=== PATIENT | male | born 1945 | race Caucasian/White ===

== ENCOUNTER 2021-01-07 12:32 | Inpatient (IN) | payer MEDICARE ==
[~2021-01-07] VITALS: Ht 172.7 cm; Wt 50.0 kg
[2021-01-07 13:02] LABS: BASO # 0.1 x10^3/uL (0.0-0.2); BASO % 1 % (0-3); EOS # 0.1 x10^3/uL (0.0-0.7); EOS % 1 % (0-3); HEMATOCRIT 46.4 % (39.0-53.0); HEMOGLOBIN 15.4 g/dL (13.0-17.5); LYMPH # 1.4 x10^3/uL (1.0-4.8); LYMPH % 16 % (24-48); MEAN CORPUSCULAR HEMOGLOBIN 33 pg (25-35); MEAN CORPUSCULAR HGB CONC 33 g/dL (31-37); MEAN CORPUSCULAR VOLUME 99 fL (79-100); MONO # 0.5 x10^3/uL (0.0-1.1); MONO % 6 % (0-9); NEUT # 6.6 x10^3uL (1.8-7.7); NEUT % 76 % (31-73); PLATELET COUNT 394 x10^3/uL (140-400); RED BLOOD COUNT 4.67 x10^6/uL (4.30-5.70); RED CELL DISTRIBUTION WIDTH 15.5 % (11.5-14.5); WHITE BLOOD COUNT 8.7 x10^3/uL (4.0-11.0)
--- NOTE | 2021-01-07 13:05 | EKG ---
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
--- NOTE | 2021-01-07 13:14 | PHYS DOC ---
Past History Past Medical History: A-Fib, CHF, COPD Additional Past Medical Histor: Sensory issues, pneumothorax, histoplasmosis as a teen, untreated. Past Surgical History: No Surgical History Smoking: Cigarettes Alcohol Use: Sober Drug Use: None General Adult EDM: Chief Complaint: SHORTNESS OF BREATH HPI: HPI: 75-year-old male presents via EMS with report of fatigue, dyspnea with exertion and rapid heart rate that has been progressive for the past few days. EMS was called and noted patient down to 82% on room air. Patient with subsequent improvement of O2 sats up to 94% on 4 L nasal cannula. Patient reports he does not typically use supplemental oxygen. Patient does have a history of COPD as well as CHF. Reports he does continue to smoke. Patient also reports history of histoplasmosis as a child that was reportedly "untreated". Denies known exposure to COVID-19. Patient reports he has gotten the first Pfizer vaccination in November. Patient reports he is not received second vaccination. EMS reports reports [facility] [place] however they were diverted secondary to "acuity "of condition. Review of Systems: Review of Systems: Constitutional: Denies fever or chills; reports fatigue Eyes: Denies redness or eye pain HENT: Denies nasal congestion or sore throat Respiratory: Reports cough and shortness of breath Cardiovascular: Denies chest pain; reports palpitations GI: Denies abdominal pain, nausea, or vomiting : Denies dysuria or hematuria Musculoskeletal: Denies back pain or joint pain Integument: Denies rash or skin lesions Neurologic: Denies headache, focal weakness or sensory changes Complete systems were reviewed and found to be within normal limits, except as documented in this note. Allergies: Allergies: Allergies Coded Allergies Type Severity Reaction Last Updated Verified Penicillins Allergy Unknown 01/07/21 Yes bupropion Allergy Unknown 01/07/21 Yes cephalexin Allergy Unknown Anaphylaxis 01/07/21 Yes diltiazem Allergy Unknown Anaphylaxis 01/07/21 Yes Uncoded Allergies Type Severity Reaction Last Updated Verified TUNA Allergy Unknown 01/07/21 Physical Exam: PE: Constitutional: Well developed, well nourished, ill but non-toxic appearance HENT: Normocephalic, atraumatic Eyes: Conjunctiva normal, no discharge Neck: Normal range of motion, supple Lungs & Thorax: No respiratory distress, equal chest rise and fall, diminished at bases Cardiovascular: Tachycardic regular rhythm Abdomen: Soft, no tenderness Skin: Warm, dry, no erythema, no rash Extremities: No tenderness, ROM intact, no edema Neurologic: Alert and oriented X 3, no focal deficits noted Psychologic: Affect normal, judgment normal Current Patient Data: Labs: Laboratory Tests Test 01/07/21 12:42 White Blood Count 8.7 x10^3/uL (4.0-11.0) Red Blood Count 4.67 x10^6/uL (4.30-5.70) Hemoglobin 15.4 g/dL (13.0-17.5) Hematocrit 46.4 % (39.0-53.0) Mean Corpuscular Volume 99 fL (79-100) Mean Corpuscular Hemoglobin 33 pg (25-35) Mean Corpuscular Hemoglobin Concent 33 g/dL (31-37) Red Cell Distribution Width 15.5 % (11.5-14.5) H Platelet Count 394 x10^3/uL (140-400) Neutrophils (%) (Auto) 76 % (31-73) H Lymphocytes (%) (Auto) 16 % (24-48) L Monocytes (%) (Auto) 6 % (0-9) Eosinophils (%) (Auto) 1 % (0-3) Basophils (%) (Auto) 1 % (0-3) Neutrophils # (Auto) 6.6 x10^3uL (1.8-7.7) Lymphocytes # (Auto) 1.4 x10^3/uL (1.0-4.8) Monocytes # (Auto) 0.5 x10^3/uL (0.0-1.1) Eosinophils # (Auto) 0.1 x10^3/uL (0.0-0.7) Basophils # (Auto) 0.1 x10^3/uL (0.0-0.2) Vital Signs: Vital Signs Date Time Temp Pulse Resp B/P (MAP) Pulse Ox O2 Delivery O2 Flow Rate FiO2 01/07/21 12:35 97.4 106 22 114/83 (93) 82 0 EKG: EKG: @1250 AFIB with RVR at 111bpm, NO ST elevation, QRS 100ms, QT/ QTc 366/501ms Radiology/Procedures: Radiology/Procedures: PROCEDURE: PORTABLE CHEST 1V EXAM: Chest, single view. HISTORY: Dyspnea. COMPARISON: None. FINDINGS: A frontal view of the chest is obtained. There are small right and moderate left pleural effusions. There is diffuse interstitial infiltrate with suspected partial left lower lobe consolidation. There is cardiomegaly. There are calcified granula. There is emphysema with biapical blebs and bullae and pleural parenchymal scarring. IMPRESSION: 1. Small right and moderate left pleural effusions. 2. Diffuse interstitial infiltrate with suspected partial left lower lobe consolidation. 3. Cardiomegaly. 4. Biapical predominant emphysema. Electronically signed by: Arina Hampton MD (01/07/2021 1:21 PM) [id number] Heart Score: C/O Chest Pain: N/A Course & Med Decision Making: Course & Med Decision Making Pertinent Labs and Imaging studies reviewed. (See chart for details) Patient reports with fatigue, dyspnea with exertion, and rapid heart rate. History of CHF, COPD, and atrial fibrillation. EKG with A. fib. Patient reports recent adjustment with amiodarone. Patient noted by EMS to be hypoxic down to 82% on room air with interval improvement with supplemental O2 at 4 L nasal cannula. EKG stable. Labs obtained and posted to chart. Troponin within normal limits. BNP significantly elevated. D-dimer elevated. WBC WNL. Lactic acid elevated. Chest x-ray with concern for vascular congestion/pleural effusions. Bumex therefore provided given patient's renal dysfunction. Doubt pulmonary embolism as patient currently on blood thinners for his A. fib. COVID testing obtained with rapid test negative. Patient requiring admission for further evaluation and treatment. Discussed with Dr. Murray (hospitalist) who is in agreement with admission. Requests ICU admission. Discussed findings and plan with patient, who acknowledges understanding and agreement. Dragon Disclaimer: Manuel Disclaimer: This electronic medical record was generated, in whole or in part, using a voice recognition dictation system. Departure Departure: Impression: Primary Impression: Respiratory failure Qualified Codes: J96.01 - Acute respiratory failure with hypoxia Additional Impressions: Acute exacerbation of CHF (congestive heart failure) Qualified Codes: I50.9 - Heart failure, unspecified Hypoxia Elevated d-dimer Renal insufficiency Elevated lactic acid level Disposition: ADMITTED INPATIENT Admitting Physician: Rocky Murray Condition: GUARDED Critical Care Time Critical care time was 30 minutes which includes time at bedside, spent in discussion of patient's care with specialists and/or family members, with interpretation of laboratory and/or radiological studies and is exclusive of procedures. VIRGINIA TSE DO Jan 07, 2021 13:14
--- NOTE | 2021-01-07 13:24 | RAD ---
EXAM: Chest, single view. HISTORY: Dyspnea. COMPARISON: None. FINDINGS: A frontal view of the chest is obtained. There are small right and moderate left pleural ef fusions. There is diffuse interstitial infiltrate with suspected partial left lower lobe consolidatio n. There is cardiomegaly. There are calcified granula. There is emphysema with biapical blebs and bul lae and pleural parenchymal scarring. IMPRESSION: 1. Small right and moderate left pleural effusions. 2. Diffuse interstitial infiltrate with suspected partial left lower lobe consolidation. 3. Cardiomegaly. 4. Biapical predominant emphysema. Electronically signed by: Arina Hampton MD (01/07/2021 1:21 PM) [id number]
[2021-01-07 13:54] LABS: ANION GAP 7 (6-14); BLOOD UREA NITROGEN 26 mg/dL (8-26); BUN/CREATININE RATIO 16 (6-20); CALCIUM 8.8 mg/dL (8.5-10.1); CARBON DIOXIDE 26 mmol/L (21-32); CHLORIDE 108 mmol/L (98-107); CREATININE 1.6 mg/dL (0.7-1.3); GFR 42.2; GLUCOSE 133 mg/dL (70-99); POTASSIUM 4.7 mmol/L (3.5-5.1); SODIUM 141 mmol/L (136-145)
[2021-01-07 14:11] LABS: ALBUMIN/GLOBULIN RATIO 0.8 (1.0-1.7); ALK PHOS 109 U/L (46-116); ALT (SGPT) 30 U/L (16-63); AST (SGOT) 19 U/L (15-37); MAGNESIUM 2.4 mg/dL (1.8-2.4); TOTAL BILIRUBIN 0.4 mg/dL (0.2-1.0); TOTAL PROTEIN 6.7 g/dL (6.4-8.2)
[2021-01-07] MEDS ORDERED: BUMETANIDE 1 MG/4 ML VIAL. IVP ONE ×2 (14:30→15:00)
[2021-01-07] MEDS ORDERED: IOHEXOL 350 MG/ML 100 ML VIAL. IV ONE (15:00)
[2021-01-07] MEDS ORDERED: ASPIRIN ENTERIC COATED 325 MG TABLET.DR. PO ONE (15:00)
[2021-01-07] MEDS ORDERED: ACETAMINOPHEN 325 MG TABLET PO PRN (15:30)
--- NOTE | 2021-01-07 16:17 | HP ---
ADMIT DATE: 01/07/2021 ATTENDING PHYSICIAN: Dr. Murray. CHIEF COMPLAINT: Shortness of breath. 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 He is a poor historian. He is a chronic alcoholic and smokes 2 packs of cigarettes a day. He presented to the ED with shortness of breath. Workup in the ER showed that he is very cachectic. He has congestive heart failure with abnormal chest x-ray. He has bilateral pleural effusions, significant emphysema. Supplemental oxygen was added. Blood pressure was adequate. Rhythm showed chronic atrial fibrillation. He was given diuretics. [facility] He was [facility] here for further treatment and evaluation. PAST MEDICAL HISTORY: Significant for severe end-stage emphysema. He also has chronic alcoholism. He drank heavily until about 3 months ago. He is in decline. He is very cachectic. He has no fat stores. He is rather alert. His oxygen saturation is marginal. He was then admitted to the hospital with unmtj-aj-ewggqev respiratory failure as well as cjgkl-bg-ndbudci congestive heart failure. CURRENT MEDICATIONS: I do not have a list. We are in the process of trying to find out if he was on any scheduled drugs. He was given Lasix in the ED. ALLERGIES: HE HAS ALLERGIES TO PENICILLIN, TUNA, BUPROPION, CEPHALEXIN, DILTIAZEM, EXACT REACTIONS UNCLEAR. FAMILY HISTORY: Unobtainable. REVIEW OF SYSTEMS: Significant for dyspnea with minimal exertion. He is in decline. He is weak. He has gone and moved in to live with the daughter. All other systems reviewed and turned out to be negative. PAST SURGICAL HISTORY: Unknown. PHYSICAL EXAMINATION: GENERAL: When I saw him, this is a frail, cachectic, elderly gentleman who looks chronically ill. VITAL SIGNS: Initial vital signs showed a blood pressure 114/83, pulse was 108, irregularly irregular. He was afebrile. HEENT: Head is without trauma. Pupils are reactive. Sclerae nonicteric. Oropharynx is clear. NECK: Supple, no bruits identified. LUNGS: Bibasilar rales. CARDIOVASCULAR: Showed regular heart tones Irregularly irregular rhythm. No gallops. Peripheral pulses are palpable and full. ABDOMEN: Scaphoid, nontender to palpation. I do not palpate any masses. EXTREMITIES: Show significant muscle wasting. He has significant atrophy of his biceps, triceps, and quadriceps muscles. NEUROLOGIC: Focally intact. No focal deficit. He is nonambulatory at this time. PERTINENT LABORATORY STUDIES: His admission hemoglobin was 15.4 g/dL with a white count of 8700. Chemistry panel: Sodium was 141 mEq, creatinine 1.6 mg percent. BNP 35,000. His troponin level was nonischemic. ASSESSMENT: 1. A 75-year-old gentleman with uwdwj-az-bqjvgox respiratory failure. 2. Vzolu-ha-ufnewel congestive heart failure. 3. Bilateral pleural effusion. 4. Oxygen-dependent chronic obstructive pulmonary disease, end-stage. 5. Significant tobacco use leading to emphysema. 6. Chronic alcoholism. 7. Protein calorie malnutrition. 8. Severe muscle wasting, cachexia, resulting in profound weakness. PLAN: 1. Admit to our ICU. 2. Diuresis. 3. Telemetry monitoring. 4. Serial chemistries. 5. We will get case management manager to discuss with the patient and determine whether he is able to return home or he needs a higher level of care. His prognosis is certainly guarded. I do believe he is at end-stage of his life. RITO/GAIL DR: RITO/antoni TID: [id number]
[2021-01-07 17:51] LABS: BACTERIA,URINE FEW /HPF (0-FEW); BILIRUBIN,URINE NEG (NEG); CLARITY,URINE CLEAR; COLOR,URINE YELLOW; GLUCOSE,URINE NEG (NEG); GRANULAR CASTS,URINE FEW /HPF; NITRITE,URINE NEG (NEG); SQUAMOUS EPITHELIAL CELL,UR OCC /LPF; UROBILINOGEN,URINE 0.2 mg/dL (0.2 mg/dL)
[2021-01-07 18:40] VITALS: BP 114/57
[2021-01-07] MEDS ORDERED: MIRT-8 PO (18:45)
[2021-01-07] MEDS ORDERED: SACU1TAB PO (18:45)
[2021-01-07] MEDS ORDERED: CYAN100031 PO (18:45)
[2021-01-07] MEDS ORDERED: SPIR25TA5 PO (18:45)
[2021-01-07] MEDS ORDERED: IPRA0.2S5 NEB (18:45)
[2021-01-07] MEDS ORDERED: CARV6.2541 PO (18:45)
[2021-01-07] MEDS ORDERED: APIX5TAB3 PO (18:45)
[2021-01-07] MEDS ORDERED: ALPR0.5T PO (18:45)
[2021-01-07 19:35] VITALS: BP 120/87
[2021-01-07 20:00] VITALS: BP 113/75
[2021-01-07] MEDS ORDERED: AMIO200T6 PO (20:26)
[2021-01-07] MEDS ORDERED: SALM50DI2 IH (20:26)
[2021-01-07] MEDS ORDERED: IPRA3AMP29 NEB (20:26)
[2021-01-07] MEDS: NICOTINE 21MG PATCH. TD SCH ×2 (20:45→21:17)
[2021-01-07 21:00] VITALS: BP 117/87
[2021-01-07] MEDS: SACUBITRIL/VALSARTAN 24/26MG TABLET. PO SCH (21:17)
[2021-01-07] MEDS: APIXABAN 5 MG TABLET. PO SCH (21:18)
[2021-01-07] MEDS: POTASSIUM CHLORIDE 20 MEQ TABLET.ER. PO SCH (21:18)
[2021-01-07 22:00] VITALS: BP 116/85
[2021-01-07 23:00] VITALS: BP 108/85
[2021-01-07] MEDS: ALPRAZolam 0.5 MG TABLET PO PRN (23:30)
[2021-01-08] VITALS (12 sets, daily range): BP systolic 95–125; BP diastolic 60–92
[2021-01-08] MEDS ORDERED: MIRT45TA53 PO (00:22)
[2021-01-08] MEDS: MIRTAZAPINE 7.5 MG TABLET. PO SCH ×2 (00:29→20:33)
[2021-01-08 06:18] LABS: CALCIUM 8.2 mg/dL (8.5-10.1); CREATININE 1.9 mg/dL (0.7-1.3); GFR 34.6; POTASSIUM 4.6 mmol/L (3.5-5.1)
[2021-01-08] MEDS: APIXABAN 5 MG TABLET. PO SCH ×2 (08:39→20:33)
[2021-01-08] MEDS: SACUBITRIL/VALSARTAN 24/26MG TABLET. PO SCH ×2 (08:39→20:35)
[2021-01-08] MEDS: POTASSIUM CHLORIDE 20 MEQ TABLET.ER. PO SCH ×2 (08:40→20:34)
[2021-01-08] MEDS: NICOTINE 21MG PATCH. TD SCH ×2 (08:40→09:00)
[2021-01-08] MEDS ORDERED: FUROSEMIDE 100 MG/10 ML VIAL IVP SCH (09:00)
--- NOTE | 2021-01-08 09:25 | PDOC2 ---
VAL COSTA GLOST KILN OPERATOR 01/08/21 0925: CARDIAC CONSULT DATE OF CONSULT DOS: DATE: 01/08/21 TIME: 09:19 REASON FOR CONSULT Reason for Consult CHF REFERRING PHYSICIAN Referring Physician Dr. Méndez SOURCE Source: Chart review, Patient HPI History of Present Illness This is a 75 yo male who presented secondary to shortness of breath for the last several days. Patient has a history of severe cardiomyopathy (EF reportedly 15%, advanced COPD, persistent AFIB. Has been shorts of breath for the last several days. Associated with orthopnea. No dizziness, diaphoresis, or nausea/vomiting. Does reports some palpitations. Reports HR normally runs near 120-140. Continue to smoke 1.5 ppd. PAST MEDICAL HISTORY Cardiovascular: AFIB, CHF, HTN, hyperipidemia Pulmonary: COPD, Other (SHRADDHA) CENTRAL NERVOUS SYSTEM: CVA Psych: Anxiety, Depression PAST SURGICAL HISTORY Past Surgical History: No pertinent history FAMILY HISTORY Family History: Heart Disease SOCIAL HISTORY Smoke: 2 packs per day ALCOHOL: none Drugs: None Lives: with Family CURRENT MEDICATIONS Current Medications Current Medications Bumetanide (Bumex) 1 mg 1X ONCE IVP Last administered on 01/07/21at 14:52; Start 01/07/21 at 14:30; Stop 01/07/21 at 14:51; Status DC Aspirin (Aspirin Enteric Coated) 325 mg 1X ONCE PO Last administered on 01/07/21at 14:58; Start 01/07/21 at 15:00; Stop 01/07/21 at 15:01; Status DC Bumetanide (Bumex) 2 mg 1X ONCE IVP Last administered on 01/07/21at 15:24; Start 01/07/21 at 15:00; Stop 01/07/21 at 15:01; Status DC Iohexol (Omnipaque 350 Mg/ml) 100 ml 1X ONCE IV ; Start 01/07/21 at 15:00; Stop 01/07/21 at 15:01; Status DC Acetaminophen (Tylenol) 650 mg PRN Q4HRS PRN PO FEVER > 100.3'F; Start 01/07/21 at 15:30; Stop 01/08/21 at 15:29 Furosemide (Lasix) 80 mg BID92 IVP ; Start 01/08/21 at 09:00; Stop 01/08/21 at 08:21; Status DC Potassium Chloride (Klor-Con) 20 meq BID PO Last administered on 01/08/21at 08:40; Start 01/07/21 at 21:00 Sacubitril/ Valsartan (Entresto 24 Mg-26 Mg) 1 tab BID PO Last administered on 01/08/21at 08:39; Start 01/07/21 at 21:00 Apixaban (Eliquis) 5 mg BID PO Last administered on 01/08/21at 08:39; Start 01/07/21 at 21:00 Alprazolam (Xanax) 0.5 mg PRN Q6HRS PRN PO ANXIETY / AGITATION Last administered on 01/07/21at 23:30; Start 01/07/21 at 20:45 Nicotine (Nicoderm Cq 21mg Patch) 1 patch DAILY TD Last administered on 01/08/21at 08:40; Start 01/07/21 at 20:45 Mirtazapine (Remeron) 22.5 mg QHS PO Last administered on 01/08/21at 00:29; Start 01/08/21 at 00:26 Active Scripts Active Reported Mirtazapine 45 Mg Tab.rapdis 22.5 Mg PO QHS Duoneb 0.5-3(2.5) Mg/3 Ml (Albuterol/Ipratropium) 3 Ml Ampul.neb 3 Ml NEB QID Serevent Diskus (Salmeterol Xinafoate) 50 Mcg Disk.w.dev 50 Mcg IH DAILY Amiodarone Hcl 200 Mg Tablet 200 Mg PO DAILY Entresto 24 mg-26 mg Tablet (Sacubitril/Valsartan) 1 Each Tablet 0.5 Each PO BID Spironolactone 25 Mg Tablet 1 Tab PO DAILY Ipratropium Stevinson 0.2 Mg/1 Ml Solution 1 Vial NEB QID PRN B-12 (Cyanocobalamin (Vitamin B-12)) 1,000 Mcg Tablet.er 1 Tab PO DAILY 30 Days Carvedilol (Carvedilol) 6.25 Mg Tablet 6.25 Mg PO BIDWMEALS Eliquis (Apixaban) 5 Mg Tablet 5 Mg PO BID Xanax (Alprazolam) 0.5 Mg Tablet 1 Tab PO BID PRN ALLERGIES Allergies: Coded Allergies: Fish Containing Products (Verified Allergy, Unknown, 01/08/21) Penicillins (Verified Allergy, Unknown, 01/07/21) bupropion (Verified Allergy, Unknown, 01/07/21) cephalexin (Verified Allergy, Unknown, Anaphylaxis, 01/07/21) diltiazem (Verified Allergy, Unknown, Anaphylaxis, 01/07/21) Uncoded Allergies: TUNA (Allergy, Unknown, 01/07/21) ROS Review of Systems 14 point ROS conducted with pertinent positives noted above in HPI PHYSICAL EXAM General: Alert, Oriented X3, Cooperative, No acute distress HEENT: Atraumatic Lungs: Other (diminished throughout ) Abdomen: Soft Extremities: No edema, Normal pulses Skin: No breakdown Neuro: Normal speech, Sensation intact Psych/Mental Status: Mental status NL, Mood NL MUSCULOSKELETAL: Osteoarthritic changes both hands VITALS Vital Signs Vital Signs Date Time Temp Pulse Resp B/P (MAP) Pulse Ox O2 Delivery O2 Flow Rate FiO2 01/08/21 09:09 Nasal Cannula 2.0 01/08/21 08:39 96 125/92 01/08/21 07:51 97.2 18 99 LABS LABS Laboratory Tests Test 01/07/21 12:42 01/07/21 12:43 01/07/21 13:15 01/07/21 16:35 White Blood Count 8.7 x10^3/uL (4.0-11.0) Red Blood Count 4.67 x10^6/uL (4.30-5.70) Hemoglobin 15.4 g/dL (13.0-17.5) Hematocrit 46.4 % (39.0-53.0) Mean Corpuscular Volume 99 fL (79-100) Mean Corpuscular Hemoglobin 33 pg (25-35) Mean Corpuscular Hemoglobin Concent 33 g/dL (31-37) Red Cell Distribution Width 15.5 % (11.5-14.5) Platelet Count 394 x10^3/uL (140-400) Neutrophils (%) (Auto) 76 % (31-73) Lymphocytes (%) (Auto) 16 % (24-48) Monocytes (%) (Auto) 6 % (0-9) Eosinophils (%) (Auto) 1 % (0-3) Basophils (%) (Auto) 1 % (0-3) Neutrophils # (Auto) 6.6 x10^3uL (1.8-7.7) Lymphocytes # (Auto) 1.4 x10^3/uL (1.0-4.8) Monocytes # (Auto) 0.5 x10^3/uL (0.0-1.1) Eosinophils # (Auto) 0.1 x10^3/uL (0.0-0.7) Basophils # (Auto) 0.1 x10^3/uL (0.0-0.2) Coronavirus (COVID-19)(PCR) Not detected (NOT DETECTD) SARS-CoV-2 Antigen (Rapid) Negative (NEGATIVE) Prothrombin Time 14.5 SEC (9.4-11.4) Prothromb Time International Ratio 1.4 (0.9-1.1) Activated Partial Thromboplast Time 31 SEC (23-33) D-Dimer (Ayesha) 1.10 mg/L (0.00-0.50) Sodium Level 141 mmol/L (136-145) Potassium Level 4.7 mmol/L (3.5-5.1) Chloride Level 108 mmol/L (98-107) Carbon Dioxide Level 26 mmol/L (21-32) Anion Gap 7 (6-14) Blood Urea Nitrogen 26 mg/dL (8-26) Creatinine 1.6 mg/dL (0.7-1.3) Estimated GFR (Cockcroft-Gault) 42.2 BUN/Creatinine Ratio 16 (6-20) Glucose Level 133 mg/dL (70-99) Lactic Acid Level 2.2 mmol/L (0.4-2.0) Calcium Level 8.8 mg/dL (8.5-10.1) Magnesium Level 2.4 mg/dL (1.8-2.4) Total Bilirubin 0.4 mg/dL (0.2-1.0) Aspartate Amino Transf (AST/SGOT) 19 U/L (15-37) Alanine Aminotransferase (ALT/SGPT) 30 U/L (16-63) Alkaline Phosphatase 109 U/L (46-116) Creatine Kinase 47 U/L (39-308) Creatine Kinase MB (Mass) 2.7 ng/mL (0.0-3.6) Creatine Kinase MB Relative Index % (0-4) Troponin I Quantitative < 0.017 ng/mL (0-0.055) WN-Oag-T-Type Natriuretic Peptide > 85778 pg/mL (0-449) Total Protein 6.7 g/dL (6.4-8.2) Albumin 3.0 g/dL (3.4-5.0) Albumin/Globulin Ratio 0.8 (1.0-1.7) Urine Collection Type Unknown Urine Color Yellow Urine Clarity Clear Urine pH 5.5 Urine Specific [place] 1.015 Urine Protein Neg (NEG-TRACE) Urine Glucose (UA) Neg mg/dL (NEG) Urine Ketones (Stick) Neg mg/dL (NEG) Urine Blood Trace (NEG) Urine Nitrite Neg (NEG) Urine Bilirubin Neg (NEG) Urine Urobilinogen Dipstick 0.2 mg/dL (0.2 mg/dL) Urine Leukocyte Esterase Neg (NEG) Urine RBC 1-2 /HPF (0-2) Urine WBC 1-4 /HPF (0-4) Urine Squamous Epithelial Cells Occ /LPF Urine Bacteria Few /HPF (0-FEW) Urine Granular Casts Few /HPF Test 01/07/21 19:15 01/07/21 22:00 01/08/21 05:42 Lactic Acid Level 2.6 mmol/L (0.4-2.0) Troponin I Quantitative < 0.017 ng/mL (0-0.055) < 0.017 ng/mL (0-0.055) Sodium Level 143 mmol/L (136-145) Potassium Level 4.6 mmol/L (3.5-5.1) Chloride Level 109 mmol/L (98-107) Carbon Dioxide Level 29 mmol/L (21-32) Anion Gap 5 (6-14) Blood Urea Nitrogen 29 mg/dL (8-26) Creatinine 1.9 mg/dL (0.7-1.3) Estimated GFR (Cockcroft-Gault) 34.6 Glucose Level 94 mg/dL (70-99) Calcium Level 8.2 mg/dL (8.5-10.1) ASSESSMENT/PLAN Assessment/Plan 1. Acute on chronic respiratory failure secondary to a/c CHF and AE COPD 2. Acute on chronic systolic CHF; improved s/p IV diuresis 3. Severe cardiomyopathy; LVEF reportedly 15%. Has outpatient echo scheduled through the [facility]. Follows with [facility] cardiology, Dr. Hollins 4. Persistent AFIB; s/p previous CV. On rate control with amiodarone and Coreg. Eliquis for stroke prophylaxis. Previously on Toprol, but patient reports this did not control his heart rate 5. Hypertension; controlled 6. Hyperlipidemia 7. JIMBO on probable CKD 8. Ongoing tobaccoism; discussed/encouraged cessation Recommendations Resume amiodarone, Coreg for rate control. Amiodarone therapy not ideal long- term given COPD Uptitrate Coreg as warranted Dig IV PRN Hold further diuresis given JIMBO If Cr worsenes, will hold Entreso as well Continue Eliquis for stroke prophylaxis Case was discussed with primary radiology services manager, Dr. Hollins and patient requested no medication changes be made without discussed with daughter and Dr. Hollins Consider AICD on an outpatient basis for primary prevention of SCD. Will defer to primary radiology services manager. Supportive care SYDNEE CLEMENS MD 01/08/21 9512: CARDIAC CONSULT ASSESSMENT/PLAN Assessment/Plan Patient seen and examined I agree with our nurse practitioners assessment and plan. Acute on chronic respiratory failure secondary to a/c CHF and AE COPD Acute on chronic systolic CHF; improved s/p IV diuresis Severe cardiomyopathy; LVEF reportedly 15%. Has outpatient echo scheduled through the [facility]. Follows with [facility] cardiology, Dr. Hollins Persistent AFIB; s/p previous CV. On rate control with amiodarone and Coreg. Eliquis for stroke prophylaxis. Hypertension; controlled Hyperlipidemia JIMBO on probable CKD. Holding diuresis and monitoring lab. VAL COSTA APRN Jan 08, 2021 09:25 SYDNEE CLEMENS MD Jan 08, 2021 17:42
[2021-01-08] MEDS: CARVEDILOL 6.25 MG TABLET PO SCH (17:11)
[2021-01-09] MEDS: ALPRAZolam 0.5 MG TABLET PO PRN ×2 (01:58→20:06)
--- NOTE | 2021-01-09 05:01 | PN ---
DATE: 01/08/2021 SUBJECTIVE: The patient is a 75-year-old male patient who apparently was admitted through the Emergency Room of [facility] with worsening of shortness of breath, fatigue and rapid heart rate that has been progressing for the last few days. The patient was found to be hypoxic with oxygen saturation of only 82% on room air when the EMS were called in. He was started on oxygen with improvement of oxygen saturation up to 94% on 4 liters of oxygen by nasal cannula. The patient stated that he does not usually use any oxygen at home. He does have a history of COPD as well as congestive heart failure. Unfortunately, he continued to smoke up to a pack and a half a day and smoked throughout his life. He apparently has a history of ____ as a child and was reportedly untreated. Denies any exposure to COVID-19. Apparently, he was vaccinated and received only 1 dose. He did not receive the second vaccination. He normally follows with his primary care physician at the [facility]; however, they were diverted secondary to acuity of the condition. Apparently, he was extensively evaluated and apparently has had chest x-ray which showed that he has small right and moderate left side pleural effusion, diffuse interstitial infiltrate with suspected partial left lower lobe consolidation, cardiomegaly, and biapical predominant emphysema, was admitted with acute on chronic hypoxic respiratory failure, chronic obstructive pulmonary disease, acute exacerbation of congestive heart failure. The D-dimer was slightly elevated. Apparently, his kidney function has also worsened with the serum creatinine has risen from 1.6-1.9. PHYSICAL EXAMINATION: GENERAL: When I examined him this morning, he was resting slightly propped up in bed, in no apparent respiratory distress. There was no pallor, jaundice, or cyanosis. No lymphadenopathy, no thyromegaly, no jugular venous distention. No limb edema. VITAL SIGNS: His heart rate was 96, irregularly irregular; blood pressure is 125/92; temperature 97.2; respiratory rate was 18; and oxygen saturation was 99% on 2 liters of oxygen. HEAD, EYES, EARS, NOSE AND THROAT: Normocephalic, atraumatic. NECK: Supple. HEART: Normal first and second heart sounds. No gallop, rub, or murmur. CHEST: Shows central trachea, equally reduced expansion, reduced air entry, vesicular breath sounds. I could not really appreciate any crepitation or rhonchi. Dull percussion noted and absent breath sounds posteriorly on both sides, more on the left than right. ABDOMEN: Scaphoid, soft, and nontender. NEUROLOGIC: He was awake, alert, responding appropriately. Cranial nerves intact. He has marked muscle wasting and weakness. He is cachectic with a body mass index only 16.9 kilograms/square meter. His intake over the last 24 hours was 450, output was 325. LABORATORY DATA: His lab work as of this morning showed serum sodium 143, potassium 4.6, chloride 109, bicarbonate 29, anion gap of 5, BUN 29, creatinine 1.9. Estimated GFR was 34 mL per minute. His glucose 94, calcium was 8.3. He had three sets of cardiac enzymes showed troponin to be less than 0.017. His beta natriuretic peptide was high at 35,000. His total protein 6.7. Albumin 3. ASSESSMENT: 1. Acute on chronic, probably diastolic congestive heart failure. 2. Bilateral pleural effusion. 3. Chronic obstructive pulmonary disease, has acute on chronic kidney injury. His creatinine has risen from 1.6-1.9. 4. Atrial fibrillation, rate controlled, well anticoagulated. 5. Acute on chronic systolic congestive heart failure. Apparently, his ejection fraction is only 15%. Apparently, he was seen by the Cardiology team. PLAN: To adjust his medication; however, the family wanted Dr. Hollins to be involved in this decision making and we are awaiting for the recommendation by the Cardiology team. Meanwhile, we will continue with all his current medication including his apixaban 5 mg twice a day, Entresto one tablet twice a day, alprazolam 0.5 mg every 6 hours, and nicotine patch 21 mg topically daily. SHEREEN/JUHI/KODY DR: Derek TID: [id number]
[2021-01-09 06:07] VITALS: BP 109/52
[2021-01-09 06:07] LABS: CALCIUM 8.4 mg/dL (8.5-10.1); CREATININE 1.3 mg/dL (0.7-1.3); GFR 53.7; POTASSIUM 5.1 mmol/L (3.5-5.1)
[2021-01-09] MEDS: NICOTINE 21MG PATCH. TD SCH (07:42)
[2021-01-09] MEDS: POTASSIUM CHLORIDE 20 MEQ TABLET.ER. PO SCH (08:10)
[2021-01-09] MEDS: APIXABAN 5 MG TABLET. PO SCH ×2 (08:11→20:00)
[2021-01-09] MEDS: SACUBITRIL/VALSARTAN 24/26MG TABLET. PO SCH ×2 (08:11→20:00)
[2021-01-09] MEDS: SPIRONOLACTONE 25 MG TABLET PO SCH (08:11)
[2021-01-09] MEDS: CARVEDILOL 6.25 MG TABLET PO SCH ×2 (08:11→17:00)
--- NOTE | 2021-01-09 08:30 | PDOC ---
CARDIO Progress Notes Date & Time Date of Service DATE: 01/09/21 TIME: 08:29 Time of Evaluation 08:29 Subjective Notes Breathing improved. Feels back to baseline this am. Vitals Vitals Vital Signs Date Time Temp Pulse Resp B/P (MAP) Pulse Ox O2 Delivery O2 Flow Rate FiO2 01/09/21 08:11 86 109/52 01/09/21 06:07 97.5 18 99 Nasal Cannula 2.0 Weight Weight [ ] Input and Output I.O. Intake and Output 01/09/21 07:00 Intake Total 960 ml Output Total 550 ml Balance 410 ml Intake Oral 960 ml Output Urine Total 550 ml # Voids 2 Laboratory Labs Laboratory Tests Test 01/07/21 12:42 01/07/21 12:43 01/07/21 13:15 01/07/21 16:35 White Blood Count 8.7 x10^3/uL (4.0-11.0) Red Blood Count 4.67 x10^6/uL (4.30-5.70) Hemoglobin 15.4 g/dL (13.0-17.5) Hematocrit 46.4 % (39.0-53.0) Mean Corpuscular Volume 99 fL (79-100) Mean Corpuscular Hemoglobin 33 pg (25-35) Mean Corpuscular Hemoglobin Concent 33 g/dL (31-37) Red Cell Distribution Width 15.5 % (11.5-14.5) Platelet Count 394 x10^3/uL (140-400) Neutrophils (%) (Auto) 76 % (31-73) Lymphocytes (%) (Auto) 16 % (24-48) Monocytes (%) (Auto) 6 % (0-9) Eosinophils (%) (Auto) 1 % (0-3) Basophils (%) (Auto) 1 % (0-3) Neutrophils # (Auto) 6.6 x10^3uL (1.8-7.7) Lymphocytes # (Auto) 1.4 x10^3/uL (1.0-4.8) Monocytes # (Auto) 0.5 x10^3/uL (0.0-1.1) Eosinophils # (Auto) 0.1 x10^3/uL (0.0-0.7) Basophils # (Auto) 0.1 x10^3/uL (0.0-0.2) Coronavirus (COVID-19)(PCR) Not detected (NOT DETECTD) SARS-CoV-2 Antigen (Rapid) Negative (NEGATIVE) Prothrombin Time 14.5 SEC (9.4-11.4) Prothromb Time International Ratio 1.4 (0.9-1.1) Activated Partial Thromboplast Time 31 SEC (23-33) D-Dimer (Ayesha) 1.10 mg/L (0.00-0.50) Sodium Level 141 mmol/L (136-145) Potassium Level 4.7 mmol/L (3.5-5.1) Chloride Level 108 mmol/L (98-107) Carbon Dioxide Level 26 mmol/L (21-32) Anion Gap 7 (6-14) Blood Urea Nitrogen 26 mg/dL (8-26) Creatinine 1.6 mg/dL (0.7-1.3) Estimated GFR (Cockcroft-Gault) 42.2 BUN/Creatinine Ratio 16 (6-20) Glucose Level 133 mg/dL (70-99) Lactic Acid Level 2.2 mmol/L (0.4-2.0) Calcium Level 8.8 mg/dL (8.5-10.1) Magnesium Level 2.4 mg/dL (1.8-2.4) Total Bilirubin 0.4 mg/dL (0.2-1.0) Aspartate Amino Transf (AST/SGOT) 19 U/L (15-37) Alanine Aminotransferase (ALT/SGPT) 30 U/L (16-63) Alkaline Phosphatase 109 U/L (46-116) Creatine Kinase 47 U/L (39-308) Creatine Kinase MB (Mass) 2.7 ng/mL (0.0-3.6) Creatine Kinase MB Relative Index % (0-4) Troponin I Quantitative < 0.017 ng/mL (0-0.055) FT-Lsq-B-Type Natriuretic Peptide > 96498 pg/mL (0-449) Total Protein 6.7 g/dL (6.4-8.2) Albumin 3.0 g/dL (3.4-5.0) Albumin/Globulin Ratio 0.8 (1.0-1.7) Urine Collection Type Unknown Urine Color Yellow Urine Clarity Clear Urine pH 5.5 Urine Specific [place] 1.015 Urine Protein Neg (NEG-TRACE) Urine Glucose (UA) Neg mg/dL (NEG) Urine Ketones (Stick) Neg mg/dL (NEG) Urine Blood Trace (NEG) Urine Nitrite Neg (NEG) Urine Bilirubin Neg (NEG) Urine Urobilinogen Dipstick 0.2 mg/dL (0.2 mg/dL) Urine Leukocyte Esterase Neg (NEG) Urine RBC 1-2 /HPF (0-2) Urine WBC 1-4 /HPF (0-4) Urine Squamous Epithelial Cells Occ /LPF Urine Bacteria Few /HPF (0-FEW) Urine Granular Casts Few /HPF Test 01/07/21 19:15 01/07/21 22:00 01/08/21 05:42 01/09/21 05:35 Lactic Acid Level 2.6 mmol/L (0.4-2.0) Troponin I Quantitative < 0.017 ng/mL (0-0.055) < 0.017 ng/mL (0-0.055) Sodium Level 143 mmol/L (136-145) 142 mmol/L (136-145) Potassium Level 4.6 mmol/L (3.5-5.1) 5.1 mmol/L (3.5-5.1) Chloride Level 109 mmol/L (98-107) 109 mmol/L (98-107) Carbon Dioxide Level 29 mmol/L (21-32) 26 mmol/L (21-32) Anion Gap 5 (6-14) 7 (6-14) Blood Urea Nitrogen 29 mg/dL (8-26) 28 mg/dL (8-26) Creatinine 1.9 mg/dL (0.7-1.3) 1.3 mg/dL (0.7-1.3) Estimated GFR (Cockcroft-Gault) 34.6 53.7 Glucose Level 94 mg/dL (70-99) 107 mg/dL (70-99) Calcium Level 8.2 mg/dL (8.5-10.1) 8.4 mg/dL (8.5-10.1) Procalcitonin < 0.10 ng/mL (0.00-0.10) Microbiology Micro Microbiology 01/07/21 Blood Culture - Preliminary, Resulted NO GROWTH AFTER 1 DAY... Physical Exams HEENT: Neck Supple W Full Motion Chest: Symmetric Lungs: Other (diminished throughout ) Heart: irregularly irregular (AFIB, rate mostly controlled ) Abdomen: Soft N/T Extremities: No Edema Neurology: alert, oriented, follow commands Assessment Assessment 1. Acute on chronic respiratory failure secondary to a/c CHF and AE COPD 2. Acute on chronic systolic CHF; improved s/p IV diuresis 3. Severe cardiomyopathy; LVEF reportedly 15%. Has outpatient echo scheduled through the [facility]. Follows with [facility]ology, Dr. Hollins 4. Persistent AFIB; s/p previous CV. On rate control with amiodarone and Coreg. Eliquis for stroke prophylaxis. Previously on Toprol, but patient reports this did not control his heart rate and daughter has reports she does not want this resumed 5. Hypertension; controlled 6. Hyperlipidemia 7. JIMBO on probable CKD; Cr improved 8. Ongoing tobaccoism; discussed/encouraged cessation Recommendations Continue amiodarone, Coreg for rate control. Amiodarone therapy not ideal long- term given COPD Continue HF optimization with Entresto, Aldactone, Coreg. Add low-dose Lasix Discussed 2Gm Na diet and 2000cc FR Eliquis for stroke prophylaxis Consider AICD on an outpatient basis for primary prevention of SCD. Will defer to primary campground manager. Four attempts made to contact daughterMonika, but have been unable to reach. Message left yesterday, but mailbox now full today and unable to leave message Supportive care Follow up with Dr. Hollins in 2 weeks as scheduled. VAL COSTA APRN Jan 09, 2021 08:30
[2021-01-09 11:35] VITALS: BP 101/60
[2021-01-09 15:25] VITALS: BP 101/71
[2021-01-09 19:04] VITALS: BP 107/72
[2021-01-09] MEDS: MIRTAZAPINE 7.5 MG TABLET. PO SCH (20:00)
[2021-01-09 23:08] VITALS: BP 98/69
--- NOTE | 2021-01-10 01:49 | PN ---
DATE: 01/09/2021 SUBJECTIVE: The patient is resting, slightly propped up in bed, in no apparent distress, awake, alert. On questioning him, he denied any chest pain or shortness of breath. He feels generally stronger. He was able to walk around the bed today. He is maintaining his oxygen saturation at 96% on room air. PHYSICAL EXAMINATION: GENERAL: When I examined him, he looked well with no pallor, jaundice, or cyanosis. No lymphadenopathy, no thyromegaly, no jugular venous distention. No lower limb edema. VITAL SIGNS: His heart rate was 88, blood pressure is 101/71, temperature 97.8, respiratory rate was 18 and oxygen saturation was 96% on 2 liters of oxygen. HEAD, EYES, EARS, NOSE, AND THROAT: Showed normocephalic, atraumatic. NECK: Supple. HEART: Showed normal first and second heart sounds. No gallop, rub or murmur. CHEST: Clear to auscultation, no crepitation or rhonchi. ABDOMEN: Scaphoid, soft, nontender. NEUROLOGIC: He was awake, alert, responding appropriately. Cranial nerves intact. He moves extremities without difficulty with marked muscle wasting and weakness. He is extremely cachectic with a body mass index only 16.8 kilograms/square meter. His intake was 450, output was 325. LABORATORY DATA: As of this morning showed a serum sodium 142, potassium 5.1, chloride 109, bicarbonate 26, anion gap of 7, BUN 28, creatinine 1.3. Estimated GFR was 53 mL per minute. His glucose 107, calcium was 8.4. His prothrombin time and INR slightly elevated, APTT was 31 and D-dimer was 1.1. ASSESSMENT: 1. Acute on chronic, probably diastolic congestive heart failure. 2. Bilateral pleural effusion. 3. Chronic obstructive pulmonary disease. 4. Acute on chronic kidney injury. His serum creatinine has went up from 1.6 to 1.9 this morning, came down to 1.3. 5. Atrial fibrillation, rate controlled, well anticoagulated. 6. Acute on chronic systolic congestive heart failure. Apparently, his ejection fraction is only 15%. PLAN: To continue with furosemide 20 mg daily, spironolactone 25 mg daily, carvedilol 6.25 mg twice a day, mirtazapine 22.5 mg at bedtime, apixaban 5 mg twice a day, Entresto 1 tablet twice a day, potassium chloride 20 mEq b.i.d., nicotine 1 patch daily, and alprazolam 0.[address]: Derek TID: [id number]
[2021-01-10 06:00] VITALS: BP 121/90
[2021-01-10 06:38] LABS: CALCIUM 8.3 mg/dL (8.5-10.1); CREATININE 1.1 mg/dL (0.7-1.3); GFR 65.1; POTASSIUM 4.7 mmol/L (3.5-5.1)
[2021-01-10 08:00] VITALS: BP 126/80
[2021-01-10] MEDS: NICOTINE 21MG PATCH. TD SCH (08:33)
[2021-01-10] MEDS: SACUBITRIL/VALSARTAN 24/26MG TABLET. PO SCH (08:38)
[2021-01-10] MEDS: SPIRONOLACTONE 25 MG TABLET PO SCH (08:38)
[2021-01-10] MEDS: CARVEDILOL 6.25 MG TABLET PO SCH (08:39)
[2021-01-10] MEDS: APIXABAN 5 MG TABLET. PO SCH (08:39)
[2021-01-10] MEDS ORDERED: FUROSEMIDE 20 MG TABLET PO SCH (09:00)
[2021-01-10 12:00] VITALS: BP 143/92
[2021-01-10] MEDS ORDERED: FURO-69 PO (13:48)
--- NOTE | 2021-01-10 14:00 | DISCH ---
HOME HEALTH DISCHARGE/MEDS DISCHARGE INFORMATION: Discharge Date: Jan 10, 2021 Final Diagnosis: Problems Medical Problems: (1) Acute exacerbation of CHF (congestive heart failure) Status: Acute (2) Elevated d-dimer Status: Acute (3) Elevated lactic acid level Status: Acute (4) Hypoxia Status: Acute (5) Renal insufficiency Status: Acute (6) Respiratory failure Status: Acute Condition on Discharge: Stable CODE STATUS: Code Status: Full HOME HEALTH: Face to Face: I certify this patient is under my care and that I, or a nurse practitioner or physician's judicial administrative assistant working with me, had a face to face encounter that meets the physician face to face encounter requirements with this patient on 01/10/2021 Longterm For: Medication Management Physical Therapy For: Evalulation/Treatment Occupational Therapy For: Evaluation/Treatment POST DISCHARGE ORDERS: Activity Instructions for Disc: Activity as tolerated DIET AFTER DISCHARGE: Cardiac CERTIFICATION STATEMENT: Certification Statement: Based on the above finding, I certify that this patient is confined to the home and needs intermittent halfway care, physical therapy and/or speech therapy, or continues to need occupational therapy.~ This patient is under my care, and I have initiated the establishment of the plan of care.~ This patient will be followed by myself or a community physician who will periodically review the plan of care. DISCHARGE MEDICATIONS: Home Meds Reported Medications Mirtazapine (MIRTAZAPINE) 45 Mg Tab.rapdis, 22.5 MG PO QHS for sleep, TAB 01/08/21 Ipratropium/Albuterol Sulfate (DUONEB 0.5-3(2.5) MG/3 ML) 3 Ml Ampul.neb, 3 ML NEB QID for asthma, EACH 01/07/21 Salmeterol Xinafoate (SEREVENT DISKUS) 50 Mcg Disk.w.dev, 50 MCG IH DAILY for asthma, INH 01/07/21 Amiodarone Hcl (AMIODARONE HCL) 200 Mg Tablet, 200 MG PO DAILY for afib, TAB 01/07/21 Sacubitril/Valsartan (Entresto 24 mg-26 mg Tablet) 1 Each Tablet, 0.5 EACH PO BID for HEART FAILURE, TAB 01/07/21 Spironolactone (SPIRONOLACTONE) 25 Mg Tablet, 1 TAB PO DAILY for DIURETIC, #90 TAB 1 Refill 01/07/21 Ipratropium Ethel (IPRATROPIUM BROMIDE) 0.2 Mg/1 Ml Solution, 1 VIAL NEB QID PRN for SHORTNESS OF BREATH, #300 ML 5 Refills 01/07/21 Cyanocobalamin (Vitamin B-12) (B-12) 1,000 Mcg Tablet.er, 1 TAB PO DAILY for SUPPLEMENT for 30 Days, #30 TAB 0 Refills 01/07/21 Carvedilol (CARVEDILOL ) 6.25 Mg Tablet, 6.25 MG PO BIDWMEALS for CARDIAC, TAB 01/07/21 Apixaban (ELIQUIS) 5 Mg Tablet, 5 MG PO BID for AFIB, TAB 01/07/21 Alprazolam (XANAX) 0.5 Mg Tablet, 1 TAB PO BID PRN for ANXIETY / AGITATION, #60 TAB 01/07/21 Discontinued Reported Medications Mirtazapine (MIRTAZAPINE) 30 Mg Tablet, 20 MG PO QHS for DEPRESSION, TAB 01/07/21 STEFANIE LUZ MD Jan 10, 2021 14:00
--- NOTE | 2021-01-10 14:34 | DS ---
DATE OF DISCHARGE: 01/10/2021 HOSPITAL COURSE: The patient is a 75-year-old male patient, who was admitted to the Emergency Room with increasing shortness of breath and initial evaluation showed that the patient was in congestive heart failure, bilateral pleural effusion, and also significant emphysema. He was also found to be in chronic atrial fibrillation. He was treated with IV diuretics. His heart rate remained reasonably controlled on carvedilol 6.25 mg twice a day. His ejection fraction was only 10-15% and he is on Entresto. As he remained stable, a decision was made to discharge him home to follow with his primary bobbin cleaner hand, Dr. Hollins at the [facility]. He has also a 6-minute walk and apparently he did very well, did not require any oxygen supplementation. Given his severe COPD, his amiodarone was discontinued and he is now on Coreg 6.25 mg twice a day. He also had an episode of acute kidney injury on probably chronic kidney disease that has resolved. PHYSICAL EXAMINATION: GENERAL: When I examined him this afternoon, he looked well and was clearly in no apparent respiratory distress. There was no pallor, jaundice, cyanosis or thyromegaly. No jugular venous distention. No limb edema. VITAL SIGNS: His heart rate was 70, blood pressure is 143/92, temperature was 98, respiratory rate was 17, and oxygen saturation was 97% on 2 liters of oxygen. HEAD, EYES, EARS, NOSE, AND THROAT: Showed he is normocephalic, atraumatic. NECK: Supple. HEART: Showed normal first and second heart sounds. No gallop, rub or murmur. CHEST: Clear to auscultation, no crepitation or rhonchi. ABDOMEN: Scaphoid, soft, and nontender. NEUROLOGIC: He was awake, alert, responding appropriately. All cranial nerves intact. He moves extremities without difficulty. There is marked muscle wasting and weakness. His body is extremely cachectic with a body mass index 16.8 kilograms/square meter. LABORATORY DATA: This morning showed a white cell count of 8700, hemoglobin 15, hematocrit 46, MCV 99, and platelet count 397,000 with normal manual differential. His chemistry showed a serum sodium 142, potassium 4.7, chloride 109, bicarbonate 27, anion gap of 6, BUN 26, creatinine 1.1. Estimated GFR was 65 mL per minute. His glucose was 93, calcium was 8.3. His prothrombin time was 14.5, INR 1.4, APTT was 31 and D-dimer was 1.1 mg per liter. His coronavirus PCR was negative. DISCHARGE MEDICATIONS: He was discharged home to continue on furosemide 20 mg once a day, spironolactone 25 mg daily, carvedilol 6.25 mg twice a day, mirtazapine 22.5 mg at bedtime, apixaban 5 mg twice a day, Entresto 24/25 one tablet twice a day, alprazolam 0.5 mg every 6 hours as needed. FINAL DISCHARGE DIAGNOSES: 1. Acute on chronic systolic congestive heart failure. 2. Acute on chronic respiratory failure secondary to acute on chronic congestive heart failure and acute exacerbation of chronic obstructive pulmonary disease. 3. Severe cardiomyopathy with left ventricular ejection fraction was only 15%. 4. Persistent atrial fibrillation, status post previous CVA. 5. Hypertension. 6. Hyperlipidemia. 7. Acute kidney injury on chronic kidney disease, ongoing tobaccoism. NERISSA DR: Derek TID: [id number]
--- NOTE | 2021-01-11 09:12 | PDOC ---
DATE OF SERVICE: DOS: DATE: 01/11/21 TIME: 09:07 SUBJECTIVE: The patient was seen and examined. OBJECTIVE: Problems: Problems Medical Problems: (1) Acute exacerbation of CHF (congestive heart failure) Status: Acute (2) Elevated d-dimer Status: Acute (3) Elevated lactic acid level Status: Acute (4) Hypoxia Status: Acute (5) Renal insufficiency Status: Acute (6) Respiratory failure Status: Acute Vital Signs/I&O: Vital Signs Date Time Temp Pulse Resp B/P (MAP) Pulse Ox O2 Delivery O2 Flow Rate FiO2 01/10/21 12:00 98.0 70 143/92 (109) 97 Room Air 2.0 01/10/21 08:00 17 I & O 01/10/21 01/10/21 01/11/21 15:00 23:00 07:00 Output Total 350 ml Balance -350 ml Physical Exam: Chest: Minimally decreased b reath sounds in the bases. CV: Irreg. irreg. Abd. Soft, no tenderness. ASSESSMENT: 1. CHF. Improved. Severely decreased LV EF at 15%. Continue present medications. Increase activity. [facility]. 2. Atrial Fib. Rate under better control. Continue present medications including anticoagulation. 3. HLD. Continue present medication. 4. JIMBO. Lab continues to improve. Justification of Admission: Justification of Admission: Justification of Admission Dx: Yes SYDNEE CLEMENS MD Jan 11, 2021 09:12
== END 2021-01-10 14:00 | disposition home or self-care (01) | DRG 291 ==
LOC: ER 12:32 → ICU 15:30
PROVIDERS: ADMIT Hospitalist; ATTEND Hospitalist
DX: I13.0 Hypertensive heart and chronic kidney disease with heart failure and stage 1 through stage 4 chronic kidney disease, or unspecified chronic kidney disease (principal); I50.43 Acute on chronic combined systolic (congestive) and diastolic (congestive) heart failure; J96.21 Acute and chronic respiratory failure with hypoxia; N17.9 Acute kidney failure, unspecified; E46 Unspecified protein-calorie malnutrition; I48.19 Other persistent atrial fibrillation; Z68.1 Body mass index [BMI] 19.9 or less, adult; I42.9 Cardiomyopathy, unspecified; E78.5 Hyperlipidemia, unspecified; F10.20 Alcohol dependence, uncomplicated; F17.210 Nicotine dependence, cigarettes, uncomplicated; J43.9 Emphysema, unspecified; N18.9 Chronic kidney disease, unspecified; F32.A Depression, unspecified; F41.9 Anxiety disorder, unspecified; G47.33 Obstructive sleep apnea (adult) (pediatric); R79.89 Other specified abnormal findings of blood chemistry; Z88.1 Allergy status to other antibiotic agents; Z88.0 Allergy status to penicillin; Z79.899 Other long term (current) drug therapy; Z86.73 Personal history of transient ischemic attack (TIA), and cerebral infarction without residual deficits; Z99.81 Dependence on supplemental oxygen; Z88.8 Allergy status to other drugs, medicaments and biological substances; Z82.49 Family history of ischemic heart disease and other diseases of the circulatory system; Z20.822 Contact with and (suspected) exposure to COVID-19
CPT/HCPCS: 36415; 71045; 80048; 80053; 81001; 82553; 83605; 83735; 83880; 84145; 84484; 85025; 85379; 85610; 85730; 87040; 87426; 93005; 94618; 96374; 96376; J3490; U0003; 97110; 97530; 99291-25